=== PATIENT | male | born 1975 | race African-American/Black ===

== ENCOUNTER 2023-07-01 14:42 | Emergency (ER) | payer BC ==
[2023-07-01] MEDS ORDERED: KETOROLAC TROMETHAMINE 15 MG/ML VIAL IVPUSH ONE (15:03)
[2023-07-01 15:04] VITALS: BP 134/92; PULSE 84; RESP 16; TEMP 97.7; BMI 37.2
[2023-07-01] MEDS ORDERED: KETOROLAC TROMETHAMINE 15 MG/ML VIAL ONE (15:13)
[2023-07-01 16:17] LABS: HEMATOCRIT 41.3 % (35.4-49); HEMOGLOBIN 13.8 G/dL (11.7-16.9); MCH 32.4 pg (25.7-33.7); MCHC 33.4 g/dl (32.0-35.9); MEAN PLT VOLUME 9.5 fl (7.5-11.1); PLATELET COUNT 200.8 10^3/uL (134-434); RBC 4.26 10^6/uL (4.00-5.60); RDW 13.5 % (11.9-15.9); WHITE BLOOD COUNT 9.2 10^3/uL (4.0-10.8)
[2023-07-01 16:24] LABS: ALBUMIN 4.4 g/dl (3.4-5.0); BLOOD UREA NITROGEN 9.2 mg/dl (7-18); CALCIUM 9.4 mg/dl (8.5-10.1); CREATININE 0.8 mg/dl (0.6-1.3); POTASSIUM 3.9 mmol/L (3.5-5.1); SGOT/AST 25.8 U/L (15-37); SGPT/ALT 16.3 U/L (7-52); TOT PROT 6.8 g/dl (6.4-8.2)
[2023-07-01 16:32] LABS: PLATELET ESTIMATE ADEQUATE
[2023-07-01 17:31] LABS: BILIRUBIN,TOTAL 0.9 mg/dL (0.2-1)
[2023-07-01] MEDS ORDERED: LIDOCAINE 5% TOPICAL PATCH TP ONE (18:02)
[2023-07-01] MEDS ORDERED: LIDOCAINE 5% TOPICAL PATCH ONE (18:39)
[2023-07-01] MEDS ORDERED: LIDOCAINE PATCH REMOVAL MC ONE (22:00)
== END 2023-07-01 18:52 | disposition home or self-care (01) ==
LOC: FER 14:42
PROC: 3E0333Z Introduction of Anti-inflammatory into Peripheral Vein, Percutaneous Approach (ICD-10-PCS; principal; 2023-07-01)
DX: R10.84 Generalized abdominal pain (principal); M43.06 Spondylolysis, lumbar region
CPT/HCPCS: 36415; 72131-TC; 74176-TC; 80053; 81003; 83690; 85025; 87086; 99284-25